=== PATIENT | male | born 1960 | race Hispanic/Latino ===

== ENCOUNTER → 2022-04-06 | Outpatient (REF) | LOC: M LABSMTC 09:55 | PROVIDERS: ATTEND Family Medicine | DX: Z00.00 Encounter for general adult medical examination without abnormal findings (principal) ==

== ENCOUNTER → 2023-05-11 | Outpatient (REF) | LOC: M EMP 10:40 | PROVIDERS: ATTEND Family Medicine | DX: Z11.52 Encounter for screening for COVID-19 (principal) ==